=== PATIENT | female | born 1980 | race Caucasian/White ===

== ENCOUNTER → 2019-09-24 | Outpatient (CLI) | payer MEDICARE ==
[~2019-09-24] MED LIST: ALBU2.5V11 NEB; ALPR0.5T7 PO; BISA5TAB38 PO; CEPH-368 PO; CETI10TA18 PO; CHOL500015 PO; CHOL500050 PO; CLIN150C14 PO; DIAZ10TA PO; DICL50TA2 PO; DIPH1TAB PO; FENO145T32 PO; FENTANYL PATCH TD; FLUO40CA9 PO; GABA100C PO; GABA1TAB PO; GABA300T3 PO; GABA600T7 PO; KETO10TA PO; LAMO50TA3 PO; LEVO100T PO; LEVO100T5 PO; LEVO200T5 PO; LEVO50TA5 PO; METH500T97 PO; MOME17SP NS; MORP30TA PO; NORG1TAB7 PO; OMEP-110 PO; ONDA4TAB10 PO; ORAL CONTRACEPTIVE PO; OXYC20TA2 PO; OXYC5TAB3 PO; PROM12.553 RC; SIMV40TA20 PO; TRAM50TA2 PO; TRAZ300T2 PO; VENL150C PO
== END | disposition home or self-care (01) ==
LOC: STAR 12:06
PROVIDERS: ATTEND Surgery
DX: Z01.818 Encounter for other preprocedural examination (principal); Z11.59 Encounter for screening for other viral diseases
CPT/HCPCS: 36415; 86800; 87635

== ENCOUNTER 2019-09-28 05:47 | Inpatient (IN) | payer MEDICARE ==
[~2019-09-28] VITALS: Ht 162.6 cm; Wt 136.1 kg
[2019-09-28] MEDS ORDERED: LACTATED RINGERS 1,000 ML IV SCH ×2 (06:14→10:00)
[2019-09-28] MEDS ORDERED: CHLORHEXIDINE 15 ML UDC MM STA (06:14)
[2019-09-28] MEDS ORDERED: LIDOCAINE-MPF 1%, 2ML INFIL STA (06:14)
[2019-09-28 06:22] VITALS: BP 135/92
[2019-09-28 07:14] LABS: HCG UR SG 1.024 (1.003-1.030)
[2019-09-28] MEDS ORDERED: FENTANYL PF 100 MCG/2ML ONE ×2 (07:25→08:38)
[2019-09-28] MEDS ORDERED: MIDAZOLAM 1 MG/ML, 2ML ONE (07:25)
[2019-09-28] MEDS ORDERED: PROMETHAZINE 25 MG/ML, 1ML IVPush PRN (07:30)
[2019-09-28] MEDS ORDERED: MEPERIDINE/PF 25MG/0.5ML IVPush PRN (07:30)
[2019-09-28] MEDS ORDERED: hydrALAzine 20 MG/ML, 1ML IV PRN (07:30)
[2019-09-28] MEDS ORDERED: HYDROmorphone 1 MG/ML, 1ML INJ IVPush PRN (07:30)
[2019-09-28] MEDS ORDERED: OXYcodone 5 MG/5 ML ORAL.SOL UDC PO PRN (07:30)
[2019-09-28] MEDS ORDERED: ACETAMINOPHEN 325 MG TABLET PO PRN (07:30)
[2019-09-28] MEDS ORDERED: LABETALOL 5MG/ML, 20ML IV PRN (07:30)
[2019-09-28] MEDS ORDERED: ALBUTEROL SULFATE 2.5 MG/3 ML NPPB PRN (07:30)
[2019-09-28] MEDS ORDERED: LIDOCAINE-MPF 2% ,5ML ONE (07:54)
[2019-09-28] MEDS ORDERED: CEFAZOLIN 1,000 MG ONE ×2 (08:01)
[2019-09-28] MEDS ORDERED: SUCCINYLCHOLINE 20 MG/ML, 10ML ONE (08:01)
[2019-09-28] MEDS ORDERED: DEXAMETHASONE 4 MG/ML, 1ML ONE (08:01)
[2019-09-28] MEDS ORDERED: ONDANSETRON 2MG/ML, 2ML ONE (08:01)
[2019-09-28] MEDS ORDERED: PROPOFOL 10 MG/ML, 20ML ONE (08:01)
[2019-09-28] MEDS ORDERED: ROCURONIUM 10MG/ML,5ML ONE (08:01)
[2019-09-28] MEDS ORDERED: OXYcodone 5 MG/5 ML ORAL.SOL UDC ONE (08:38)
[2019-09-28] MEDS ORDERED: ACETAMINOPHEN 650 MG/20.3 ML UDC ONE (08:38)
[2019-09-28] MEDS: FENTANYL PF 100 MCG/2ML IV PRN ×2 (08:50→08:55)
[2019-09-28] MEDS ORDERED: ONDANSETRON 2MG/ML, 2ML IV PRN (10:00)
[2019-09-28] MEDS ORDERED: morphine SULFATE 10 MG/ML, 1ML IV PRN (10:00)
[2019-09-28 12:45] VITALS: BP 112/69
[2019-09-28] MEDS: OXYcodone/APAP 5/325MG TABLET PO PRN ×2 (12:46→18:17)
[2019-09-28 13:23] LABS: ALBUMIN 3.8 g/dL (3.4-5.0); CALCIUM 8.6 mg/dL (8.5-10.1)
[2019-09-28] MEDS ORDERED: OXYC-302 PO (13:57)
[2019-09-28 18:22] LABS: ALBUMIN 3.8 g/dL (3.4-5.0); CALCIUM 8.8 mg/dL (8.5-10.1)
[2019-09-29] MEDS ORDERED: LEVOTHYROXINE 125 MCG TABLET PO SCH (06:00)
== END 2019-09-28 18:55 | disposition home or self-care (01) | DRG 626 ==
LOC: OUT 05:47 → 4NE 09:15 → OUT 09:42 → 4NE 13:40
PROVIDERS: ADMIT Surgery; ATTEND Surgery
PROC: 0GTG0ZZ Resection of Left Thyroid Gland Lobe, Open Approach (ICD-10-PCS; principal; 2019-09-28 07:30)
DX: E04.2 Nontoxic multinodular goiter (principal); Z68.43 Body mass index [BMI] 50.0-59.9, adult; Z88.8 Allergy status to other drugs, medicaments and biological substances; E66.01 Morbid (severe) obesity due to excess calories
CPT/HCPCS: 36415; 81025; 82040; 82310; 88307; G0378; J0690; J1100; J2250; J2405; J2704; J3010; C1760; J0330; J7120